=== PATIENT | male | born 1950 | race Asian ===

== ENCOUNTER 2017-10-16 09:08 | Day surgery (SDC) | payer MEDICAID ==
[~2017-10-16] VITALS: Ht 175.3 cm; Wt 68.5 kg
[2017-10-16 10:10] LABS: Hemoglobin 14.4 g/dL (13.5-17.5); Mean Corpuscular Hemoglobin 32.2 pg (28.0-32.0); Mean Corpuscular Hgb Conc. 33.5 g/dL (32.0-36.0); Mean Corpuscular Volume 96.1 fL (80.0-100.0); Platelet Count (auto) 207 10^3/uL (140-450); Red Blood Cells 4.48 10^6/uL (4.5-5.90); Red Cell Distribution Width 13.2 % (11.8-14.3); White Blood Cell 6.2 10^3/uL (4.4-10.8)
[2017-10-16 10:12] LABS: Band Neutrophils % (manual) 0
[2017-10-16 10:13] LABS: Basophils % (manual) 0 (0.0-2.0); Blast Cells 0; Metamyelocytes % 0; Myelocytes % 0; Promyelocytes % 0; Reactive Lymphocytes 0
[2017-10-16 10:27] LABS: INR 0.92 (0.9-1.15); Partial Thromboplastin Time 25.1 sec (22.64-33.71)
[2017-10-16 10:40] LABS: Alanine Aminotransferase 56 U/L (16-61); Albumin 4.2 g/dL (3.4-5.0); Alkaline Phosphatase 54 U/L (45-117); Anion Gap 8 (5-15); Aspartate Aminotransferase 24 U/L (15-37); BUN/Creatinine Ratio 12.6; Bilirubin, Total 0.5 mg/dL (0.2-1.0); Blood Urea Nitrogen 15 mg/dL (7-18); Calcium 8.8 mg/dL (8.5-10.1); Carbon Dioxide 30 mmol/L (21-32); Chloride 104 mmol/L (98-107); GFR African American 78 mL/min; GFR Non-African American 65 mL/min; Glucose 123 mg/dL (74-106); Sodium 142 mmol/L (136-145)
[2017-10-16 11:14] LABS: Eosinophils % (manual) 15 (0-7); Lymphocytes % (manual) 26 (10.0-50.0); Monocytes % (manual) 7 (0-12)
[2017-10-16 13:15] VITALS: BP 108/68
[2017-10-16] MEDS ORDERED: IODIXANOL 320MG/ML 100ML BTL IV ONE (14:19)
[2017-10-16] MEDS ORDERED: LIDOCAINE 2%HCL (LOCAL ANESTH.) INJ 20ML MDV ONE (14:20)
[2017-10-16] MEDS ORDERED: ANGIOMAX 250 MG VIAL IV ONE (14:45)
[2017-10-16] MEDS ORDERED: MIDAZOLAM HCL 1MG/1ML-2 ML VIAL ONE (14:46)
[2017-10-16] MEDS ORDERED: fentaNYL CITRATE 100 MCG/2 ML VL ONE (14:46)
== END 2017-10-16 17:20 | disposition home or self-care (01) ==
LOC: ER 09:08 → CATH 09:09 → ER 15:33 → CATH 17:20
PROVIDERS: ATTEND Internal Medicine
DX: I20.0 Unstable angina (principal); I99.8 Other disorder of circulatory system; E11.9 Type 2 diabetes mellitus without complications; I10 Essential (primary) hypertension
CPT/HCPCS: 93454; C1760; C1894; J1644; J3010; J7030; 36415; 71020; 80053; 84484; 85007; 85027; 85610; 85730; 86850; 86900; 86901; 93005; 94761; 99152; J2250; Q9967

== ENCOUNTER 2025-09-25 18:22 | Inpatient (IN) | payer MEDICARE, MEDICAID ==
[~2025-09-25] VITALS: Ht 175.3 cm; Wt 62.0 kg
--- NOTE | 2025-09-25 19:10 | ED.PDOC ---
Musculoskeletal HPI Comments 75-year-old male came to ER for left lower extremity swelling. Patient underwent prostatectomy secondary to prostate cancer as September 15, 2025 at [facility], tolerated procedure well. Yesterday noted swelling of the left lower quadrant of his abdomen, and earlier today noted swelling over his left lower extremity. No fever noted Chief Complaint: Lower Extremity Time Seen by MD: 19:09 Primary Care Provider: JAYME Reviewed Notes: Nurses Notes Allergies: Coded Allergies: NO KNOWN ALLERGIES (Unverified , 10/16/17) Home Meds No Active Prescriptions or Reported Meds Information Source: Patient, Relative Mode of Arrival: Ambulatory Extremity Location: Leg Past Medical History PAST MEDICAL HISTORY: Cancer, DM, High Lipids Surgical History (Other): S/p prostatectomy last September 15 at [facility] Family History Family History: No family hx of DM Social History Smoker: Non-Smoker Alcohol: Denies ETOH Use Drugs: Denies Drug Use Lives In: Home Constitutional: denies: chills, diaphoresis, fatigue, fever, malaise, sweats, weakness, others EENTM: denies: blurred vision, double vision, ear bleeding, ear discharge, ear drainage, ear pain, ear ringing, eye pain, eye redness, hearing loss, mouth pain, mouth swelling, nasal discharge, nose bleeding, nose congestion, nose pain, photophobia, tearing, throat pain, throat swelling, voice changes, others Respiratory: denies: cough, hemoptysis, orthopnea, SOB at rest, shortness of breath, SOB with excertion, stridor, wheezing, others Cardiovascular: denies: chest pain, dizzy spells, diaphoresis, Dyspnea on exertion, edema, irregular heart beat, left arm pain, lightheadedness, palpitations, PND, syncope, others Gastrointestinal: reports: abdominal pain (LLQ); denies: abdomen distended, blood streaked bowels, constipated, diarrhea, dysphagia, difficulty swallowing, hematemesis, melena, nausea, poor appetite, poor fluid intake, rectal bleeding, rectal pain, vomiting, others Genitourinary: denies: burning, dysuria, flank pain, frequency, hematuria, incontinence, penile discharge, penile sore, pain, testicle pain, testicle swelling, urgency, others Musculoskeletal: reports: others (Lower extremity swelling); denies: back pain, gout, joint pain, joint swelling, muscle pain, muscle stiffness, neck pain Integumetry: denies: bruises, change in color, change in hair/nails, dryness, laceration, lesions, lumps, rash, wounds, others Allergic/Immunocompromised: denies: Difficulty Healing, Frequent Infections, Hives, Itching, others Hematologic/Lymphatic: denies: anemia, blood clots, easy bleeding, easy bruising, swollen glands, others Endocrine: denies: excessive hunger, excessive sweating, excessive thirst, excessive urination, flushing, intolerance to cold, intolerance to heat, unexplained weight gain, unexplained weight loss, others Psychiatric: denies: anxiety, bipolar disorder, depression, hopeless, panic disorder, schizophrenia, sleepless, suicidal, others Physical Exam General Appearance: No Apparent Distress, Normal HEENT: Normal ENT Inspection, Pharynx Normal, TMs Normal Neck: Full Range of Motion, Non-Tender, Normal, Normal Inspection Respiratory: Chest Non-Tender, Lungs Clear, No Accessory Muscle Use, No Respiratory Distress, Normal Breath Sounds Cardiovascular: No Edema, No JVD, No Murmur, No Gallop, Normal Peripheral Pulses, Regular Rate/Rhythm Breast Exam: Deferred Gastrointestinal: No Organomegaly, Non Tender, No Pulsatile Mass, Normal Bowel Sounds, Soft, Other (Hard mass at left lower quadrant, no hematoma or bruising noted) Genitalia: Deferred Pelvic: Deferred Rectal: Deferred Extremities: No calf tenderness, Normal capillary refill, Normal range of motion, Non-tender, Pedal edema (+2 pedal edema left leg), Swelling Musculoskeletal : Apperance: Normal Neurologic: Alert, whipped topping finisher II-XII nml as Tested, No Motor Deficits, Normal Affect, Normal Mood, No Sensory Deficits Cerebellar Function: Normal Reflexes: Normal Skin: Dry, Normal Color, Warm Lymphatic: No Adenopathy Was a procedure done? Was a procedure done?: No Differential Diagnosis EXT Differential Diagnosis: Cellulitis, CHF, Deep Vein Thrombosis X-Ray, Labs, Meds, VS Vital Signs Date Time Temp Pulse Resp B/P (MAP) Pulse Ox O2 Delivery O2 Flow Rate FiO2 09/25/25 18:23 98.1 77 18 129/78 95 98.1 Lab Test 09/25/25 19:43 Range/Units White Blood Count 6.8 4.4-10.8 10^3/uL Red Blood Count 4.10 L 4.5-5.90 10^6/uL Hemoglobin 12.8 L 13.5-17.5 g/dL Hematocrit 38.0 L 41.0-53.0 % Mean Corpuscular Volume 92.6 80.0-100.0 fL Mean Corpuscular Hemoglobin 31.1 28.0-32.0 pg Mean Corpuscular Hemoglobin Concent 33.5 32.0-36.0 g/dL Red Cell Distribution Width 13.6 11.8-14.3 % Platelet Count 261 140-450 10^3/uL Mean Platelet Volume 7.5 6.9-10.8 fL Neutrophils (%) (Auto) 37.0-80.0 % Lymphocytes (%) (Auto) 10.0-50.0 % Monocytes (%) (Auto) 0.0-12.0 % Eosinophils (%) (Auto) 0.0-7.0 % Basophils (%) (Auto) 0.0-2.0 % Neutrophils # (Auto) 1.6-8.6 10 ^3/uL Lymphocytes # (Auto) 0.4-5.4 10 ^3/uL Monocytes # (Auto) 0-1.3 10 ^3/uL Differential Total Cells Counted 100.0 100 Neutrophils % (Manual) 53 37.0-80.0 Band Neutrophils % (Manual) 1 Lymphocytes % (Manual) 21 10.0-50.0 Monocytes % (Manual) 4 0-12 Eosinophils % (Manual) 21 H 0-7 Basophils % (Manual) 0 0.0-2.0 Metamyelocytes % (manual) 0 Myelocytes % (Manual) 0 Promyelocytes % (Manual) 0 Blast Cells % (Manual) 0 Reactive Lymphocytes 0 Platelet Estimate Adequate Large Platelets Few Ovalocytes Few Schistocytes Few Sodium Level 143 136-145 mmol/L Potassium Level 4.0 3.5-5.1 mmol/L Chloride Level 101 98-107 mmol/L Carbon Dioxide Level 32 H 20-31 mmol/L Anion Gap 10 5-15 Blood Urea Nitrogen 17 9-23 mg/dL Creatinine 1.17 0.700-1.30 mg/dL Glomerular Filtration Rate Calc 65 >90 mL/min BUN/Creatinine Ratio 14.5 10.0-20.0 Serum Glucose 118 H 74-106 mg/dL Calcium Level 10.1 8.7-10.4 mg/dL Left lower extremity venous duplex Clinical History: dvt, pain Comparison: None Technique: Duplex Doppler evaluation of the deep venous system of the left lower extremity from the common femoral vein to the popliteal vein including color Doppler and spectral/pulsed waveform analysis was performed. Findings: The common femoral vein demonstrates appropriate compressibility and waveform variability. There is compressibility/patency of the great saphenous vein at the proximal thigh. The femoral vein demonstrates appropriate compressibility and waveform variability. The deep femoral vein demonstrates appropriate compressibility and waveform variability. The popliteal vein demonstrates appropriate compressibility and waveform variability. There is normal compressibility at the tibioperoneal trunk. Diffuse subcutaneous edema. Impression: No left femoropopliteal venous thrombosis. Diffuse subcutaneous edema EDURE(s): ABPL - CT AB PEL WO CON-NO ORAL OR IV REASON: post op pain ORDER NUMBER(s): [id number], ACCESSION NUMBER(s): [id number] CLINICAL HISTORY: post op pain TECHNIQUE: CT of the abdomen and pelvis was performed without intravenous contrast This exam was performed according to our departmental dose optimization program. Up-to-date CT equipment and radiation dose reduction techniques are utilized as appropriate. WID: COMPARISON: None FINDINGS: Lung bases: Bronchial wall thickening with mild emphysema. Liver: Unremarkable. Gallbladder and bile ducts: Unremarkable. Spleen: Unremarkable. Pancreas: Unremarkable. Adrenals: Unremarkable. Kidneys and ureters: Unremarkable. Bowel: Moderate colonic stool burden. The small bowel and stomach are unremarkable. Bladder: Banks catheter within urinary bladder with associated gas.. Reproductive organs: Unremarkable. Lymph nodes: Unremarkable. Vessels: Mild atherosclerotic calcifications. Abdominal aorta is normal in caliber Abdominal wall: Subcutaneous emphysema along the ventral abdominal wall.. Bones: Mild -moderate degenerative changes within the lumbar spine.. Other: Unremarkable. IMPRESSION: Subcutaneous emphysema within the anterior abdominal wall and inguinal soft tissues which may be related to recently provided history of postoperative status. Banks catheter with air within the bladder Moderate -large colonic stool burden Emphysema Time of 1ST Reevaluation: 19:06 Reevaluation 1ST: Unchanged Patient Education/Counseling: Diagnosis, Treatment, Prognosis, Need For Follow Up Family Education/Counseling: Diagnosis, Treatment, Prognosis, Need For Follow Up, No Family Present Comments pt has a dvt of the left lower extremety and will be admitted.The he is postoperative and in August the surgery. Presents we when he leg swelling. Ultrasound shows and he is hearing he will. Her morning GERD requiring the not show hematoma or abscess. Departure 1 Departure Time of Disposition: 21:32 Impression: Primary Impression: DVT (deep venous thrombosis) Qualified Codes: I82.412 - Acute embolism and thrombosis of left femoral vein Disposition: ADMITTED INPATIENT Condition: Stable e-Prescriptions No Active Prescriptions or Reported Meds Discharged With: Self, Relative Critical Care Note Critical Care Time?: No Stability Stability form required: No Heart Score Heart Score: Heart Score Response (Comments) Value History N/A 0 EKG N/A 0 Age N/A 0 Risk Factors N/A 0 Troponin N/A 0 Total 0 I personally scribed for KASHMIR BASSETT MD ([email or web address]) on 09/25/25 at 19:10. Electronically submitted by Steve Barone ([email or web address]). I personally scribed for KASHMIR BASSETT MD ([email or web address]) on 09/25/25 at 21:24. Electronically submitted by Steve Barone ([email or web address]). KASHMIR BASSETT MD Sep 25, 2025 19:10
--- NOTE | 2025-09-25 19:42 | DVH ---
Left lower extremity venous duplex Clinical History: dvt, pain Comparison: None Technique: Duplex Doppler evaluation of the deep venous system of the left lower extremity from the common femoral vein to the popliteal vein including color Doppler and spectral/pulsed waveform analysis was performed. Findings: The common femoral vein demonstrates appropriate compressibility and waveform variability. There is compressibility/patency of the great saphenous vein at the proximal thigh. The femoral vein demonstrates appropriate compressibility and waveform variability. The deep femoral vein demonstrates appropriate compressibility and waveform variability. The popliteal vein demonstrates appropriate compressibility and waveform variability. There is normal compressibility at the tibioperoneal trunk. Diffuse subcutaneous edema. Impression: No left femoropopliteal venous thrombosis. Diffuse subcutaneous edema
[2025-09-25 20:03] LABS: Hematocrit 38.0 % (41.0-53.0); Hemoglobin 12.8 g/dL (13.5-17.5); Mean Corpuscular Hemoglobin 31.1 pg (28.0-32.0); Mean Corpuscular Volume 92.6 fL (80.0-100.0)
[2025-09-25 20:08] LABS: Chloride 101 mmol/L (98-107); Potassium 4.0 mmol/L (3.5-5.1)
[2025-09-25 20:09] LABS: Sodium 143 mmol/L (136-145)
[2025-09-25 20:10] LABS: Anion Gap 10 (5-15); Calcium 10.1 mg/dL (8.7-10.4)
[2025-09-25 20:15] LABS: BUN/Creatinine Ratio 14.5 (10.0-20.0); Blood Urea Nitrogen 17 mg/dL (9-23)
[2025-09-25 20:16] LABS: Carbon Dioxide 32 mmol/L (20-31); Glucose 118 mg/dL (74-106)
--- NOTE | 2025-09-25 20:23 | DVH ---
CLINICAL HISTORY: post op pain TECHNIQUE: CT of the abdomen and pelvis was performed without intravenous contrast This exam was performed according to our departmental dose optimization program. Up-to-date CT equipment and radiation dose reduction techniques are utilized as appropriate. WID: COMPARISON: None FINDINGS: Lung bases: Bronchial wall thickening with mild emphysema. Liver: Unremarkable. Gallbladder and bile ducts: Unremarkable. Spleen: Unremarkable. Pancreas: Unremarkable. Adrenals: Unremarkable. Kidneys and ureters: Unremarkable. Bowel: Moderate colonic stool burden. The small bowel and stomach are unremarkable. Bladder: Banks catheter within urinary bladder with associated gas.. Reproductive organs: Unremarkable. Lymph nodes: Unremarkable. Vessels: Mild atherosclerotic calcifications. Abdominal aorta is normal in caliber Abdominal wall: Subcutaneous emphysema along the ventral abdominal wall.. Bones: Mild -moderate degenerative changes within the lumbar spine.. Other: Unremarkable. IMPRESSION: Subcutaneous emphysema within the anterior abdominal wall and inguinal soft tissues which may be related to recently provided history of postoperative status. Banks catheter with air within the bladder Moderate -large colonic stool burden Emphysema
[2025-09-25 20:52] LABS: Total Cells Counted 100.0 (100)
[2025-09-25 20:53] LABS: Ovalocytes FEW
[2025-09-25] MEDS ORDERED: ENOXAPARIN SOD 60 MG/0.6 ML SYRINGE SC ONE (21:30)
[2025-09-25] MEDS ORDERED: ACETAMINOPHEN 325 MG TAB PO PRN (23:15)
--- NOTE | 2025-09-25 23:26 | DVHHPRES ---
History of Present Illness Resident Creating Document: RHETT LEDEZMA RESIDENT History of Present Illness Edson Moore, a 75-year-old male postoperative day 12, status post prostate cancer surgery with past medical history of BPH status post open prostatic surgery, type 2 diabetes mellitus, hypercholesterolemia, bladder cancer multiple surgeries in 2019 to 2021, macular degeneration on treatment, Banks's catheter in place presented to the ER with the complaints of left-sided leg swelling since this morning. He also has left-sided inguinal swelling, size does not change with coughing. He reports having mild pain in the inguinal swelling site. He denies any chest pain, shortness of breath, fever, urinary symptoms like urgency frequency or burning sensation in micturition, sick contacts or recent travel. Past medical history: As above Past surgical history: as above plus hemorrhoidectomy remotely Allergies: None Smoking: Quit 10 years ago. Before migrating to the [facility] from [facility], he used to be a moderate smoker. Code status: Full code Review of Systems Allergies: Coded Allergies: NO KNOWN ALLERGIES (Unverified , 10/16/17) Medications Current Medications Medications Dose Ordered Sig/Ky Route Start Time Stop Time Status Last Admin Dose Admin Enoxaparin Sodium 40 mg DAILY SC 09/26/25 10:00 UNV Acetaminophen 650 mg Q6HP PRN PO 09/25/25 23:15 UNV Exam Vital Signs Vital Signs Date Time Temp Pulse Resp B/P (MAP) Pulse Ox O2 Delivery O2 Flow Rate FiO2 09/25/25 18:23 98.1 77 18 129/78 95 98.1 Exam Pt is lying on bed General Appearance: Alert, Oriented X3, Cooperative, Mild distress HEENT: Atraumatic, Mucous membranes moist/pink Respiratory: Clear to auscultation, Normal air movement, No added sounds Cardiovascular: Regular rate, Normal S1, Normal S2, No murmurs Abdominal/ : Active bowel sounds, Soft, no distention, no tenderness, left inguinal swelling Extremities: No edema, Normal pulses, left leg swelling, Skin: No Significant rash, except past surgical scars Neuro: Normal speech, sensorimotor deficits none Psych/Mental Status: Mental status NL, Mood NL Nurse was there as reverse engineer during examination Labs/Xrays Labs Test 09/25/25 19:43 Range/Units White Blood Count 6.8 4.4-10.8 10^3/uL Red Blood Count 4.10 L 4.5-5.90 10^6/uL Hemoglobin 12.8 L 13.5-17.5 g/dL Hematocrit 38.0 L 41.0-53.0 % Mean Corpuscular Volume 92.6 80.0-100.0 fL Mean Corpuscular Hemoglobin 31.1 28.0-32.0 pg Mean Corpuscular Hemoglobin Concent 33.5 32.0-36.0 g/dL Red Cell Distribution Width 13.6 11.8-14.3 % Platelet Count 261 140-450 10^3/uL Mean Platelet Volume 7.5 6.9-10.8 fL Neutrophils (%) (Auto) 37.0-80.0 % Lymphocytes (%) (Auto) 10.0-50.0 % Monocytes (%) (Auto) 0.0-12.0 % Eosinophils (%) (Auto) 0.0-7.0 % Basophils (%) (Auto) 0.0-2.0 % Neutrophils # (Auto) 1.6-8.6 10 ^3/uL Lymphocytes # (Auto) 0.4-5.4 10 ^3/uL Monocytes # (Auto) 0-1.3 10 ^3/uL Differential Total Cells Counted 100.0 100 Neutrophils % (Manual) 53 37.0-80.0 Band Neutrophils % (Manual) 1 Lymphocytes % (Manual) 21 10.0-50.0 Monocytes % (Manual) 4 0-12 Eosinophils % (Manual) 21 H 0-7 Basophils % (Manual) 0 0.0-2.0 Metamyelocytes % (manual) 0 Myelocytes % (Manual) 0 Promyelocytes % (Manual) 0 Blast Cells % (Manual) 0 Reactive Lymphocytes 0 Platelet Estimate Adequate Large Platelets Few Ovalocytes Few Schistocytes Few Sodium Level 143 136-145 mmol/L Potassium Level 4.0 3.5-5.1 mmol/L Chloride Level 101 98-107 mmol/L Carbon Dioxide Level 32 H 20-31 mmol/L Anion Gap 10 5-15 Blood Urea Nitrogen 17 9-23 mg/dL Creatinine 1.17 0.700-1.30 mg/dL Glomerular Filtration Rate Calc 65 >90 mL/min BUN/Creatinine Ratio 14.5 10.0-20.0 Serum Glucose 118 H 74-106 mg/dL Calcium Level 10.1 8.7-10.4 mg/dL SEPSIS Sepsis Screen Date sepsis recognized/suspect: Sep 25, 2025 Time Sepsis recognized/suspect: 1824 Recent Procedure: No On Antibiotic Therapy: No Respiratory Rate >20: No Heart Rate >90: No Temp<36 C (96.8 F) or >38.3 C: No SBP <90 or MAP <65 mmHG: No New Acute Mental Status Change: No Is the patient on CPAP, BIPAP,: No Physician Orders Lt Lower Dvt (09/25/25 19:10) Ct Ab Pel Wo Con-No Oral Or Iv (09/25/25 19:10) Admit (09/25/25 23:10) Allergies (09/25/25 23:10) Code Status (09/25/25 23:10) Oxygen Per Hour (09/25/25 23:10) Enoxaparin Sodium (Lovenox) (09/26/25 10:00) Complete Blood Count (09/26/25 04:00) Comprehensive Metabolic Panel (09/26/25 04:00) Cardiac Diet-2gna,Lofat,Lochol (09/26/25 Breakfast) Acetaminophen Tablet (Tylenol Tablet) (09/25/25 23:15) Notify Of Changes From Base (09/25/25 23:10) Electrocardigram (09/25/25 23:10) Mri Abd Pelvis W/O Cont (09/25/25 23:22) Vital Signs Date Time Temp Pulse Resp B/P (MAP) Pulse Ox O2 Delivery O2 Flow Rate FiO2 09/25/25 18:23 98.1 77 18 129/78 95 98.1 Laboratory Tests Test 09/25/25 19:43 White Blood Count 6.8 10^3/uL (4.4-10.8) Assessment/Plan Assessment/Plan Left leg swelling possible DVT (modified wells score high risk 6) Inguinal swelling Postoperative day 12 status post prostate cancer surgery Banks's catheter in place Abdomen pelvis CT: Subcutaneous emphysema within the anterior abdominal wall and inguinal soft tissues, which may be postoperative Extremity venous study: No left femoropopliteal venous thrombosis. Abdomen pelvis MRI ordered, pending results due to high risk of DVT. Constipation Abdomen pelvis CT: Moderate -large colonic stool burden Lactulose ordered Normocytic normochromic anemia -iron panel, LDH, reticulocyte ordered -stool FOBT ordered -reticulocyte count ordered GI prophylaxis: Pantoprazole DVT prophylaxis: Lovenox Diet: Cardiac Goals of care discussed with the patient for more than 27 minutes: Full code status Case discussed with , patient and RN Plan discussed with: Patient, Other (RN) My Orders Orders - RHETT LEDEZMA RESIDENT Procedure Category Date Status Time Admit ADMIT 09/25/25 Transmitted 23:10 Allergies DRAKE 09/25/25 In Process 23:10 Code Status CODE 09/25/25 Transmitted 23:10 Oxygen Per Hour RT 09/25/25 Transmitted 23:10 Enoxaparin Sodium PHA 09/26/25 Logged (Lovenox) 10:00 Complete Blood Count LAB 09/26/25 Verified 04:00 Comprehensive LAB 09/26/25 Verified Metabolic Panel 04:00 Cardiac DIET 09/26/25 Transmitted Diet-2gna,Lofat,Lochol Breakfast Acetaminophen Tablet PHA 09/25/25 Logged (Tylenol Tablet) 23:15 Notify Md Of Changes DRAKE 09/25/25 In Process From Base 23:10 Electrocardigram EKG 09/25/25 Logged 23:10 Mri Abd Pelvis W/O MRI 09/25/25 Logged Cont 23:22 Visit Coding STANDARD RES Billing Provider: RAFFAELE DHILLON MD Date of Service if different f: Sep 26, 2025 Common Visit Codes: 58074-[id number] INP/OBS CARE (HIGH) Secondary Visit Codes: 03040-[id number] CARE PLAN 30 MINUTES RHETT LEDEZMA Sep 25, 2025 23:26
[2025-09-26 03:17] LABS: Hematocrit 39.0 % (41.0-53.0); Hemoglobin 13.1 g/dL (13.5-17.5); Mean Corpuscular Hemoglobin 31.2 pg (28.0-32.0); Mean Corpuscular Volume 92.7 fL (80.0-100.0)
[2025-09-26 03:35] LABS: Alanine Aminotransferase 22 U/L (7-40); Albumin 4.5 g/dL (3.2-4.8); Alkaline Phosphatase 69 U/L (46-116); Anion Gap 9 (5-15); BUN/Creatinine Ratio 15.7 (10.0-20.0); Blood Urea Nitrogen 16 mg/dL (9-23); Calcium 9.8 mg/dL (8.7-10.4); Carbon Dioxide 30 mmol/L (20-31); Chloride 102 mmol/L (98-107); Glucose 96 mg/dL (74-106); Potassium 4.2 mmol/L (3.5-5.1); Sodium 141 mmol/L (136-145); Total Protein 7.5 g/dL (5.7-8.2)
[2025-09-26 03:36] LABS: Bilirubin, Total 0.5 mg/dL (0.2-1.0)
[2025-09-26 05:10] LABS: Total Cells Counted 100.0 (100)
[2025-09-26] MEDS ORDERED: ROSU10TA64 PO (05:33)
[2025-09-26 06:16] LABS: Iron 51.0 ug/dL (65-175)
[2025-09-26 06:19] LABS: Total Iron Binding Capacity 272.0 ug/dL (250-425)
[2025-09-26] MEDS: PANTOPRAZOLE 40 MG TAB PO SCH (06:42)
[2025-09-26] MEDS: LACTULOSE 20Gm/30ML SOLN PO ONE (06:43)
[2025-09-26 07:14] LABS: Urine Protein, UAD Negative (Negative)
[2025-09-26] MEDS ORDERED: NALOXONE HCL 0.4 MG/ML VIAL IM ONE (10:30)
--- NOTE | 2025-09-26 10:37 | DVH ---
CHEST RADIOGRAPH Indication: r/o any metallic prosthesis for MRI Technique: Single frontal view of the chest was obtained Comparison: None FINDINGS: Lines and Tubes: None Lungs: Scarring or areas of atelectasis right upper lobe right lower lobe lower lobe. Pleura: No effusion. No pneumothorax. Cardiomediastinal contours: Unremarkable Bones: No acute osseous abnormality. IMPRESSION: 1. No prior studies for comparison 2. Scarring or linear atelectasis right upper lobe right lower lobe and left lower lobe.
[2025-09-26] MEDS: LACTULOSE 20Gm/30ML SOLN PO SCH (10:39)
[2025-09-26] MEDS: ENOXAPARIN SOD 40 MG/0.4 ML SYRINGE SC SCH (10:39)
[2025-09-26 11:29] VITALS: BP 137/82; PULSE 79; RESP 17; TEMP 98.7; O2SAT 96
[2025-09-26] MEDS ORDERED: LATA0.008 EACHEYE (11:52)
[2025-09-26] MEDS ORDERED: METF-370 PO (11:52)
[2025-09-26] MEDS ORDERED: ROSU10TA16 PO (11:52)
[2025-09-26] MEDS ORDERED: ASPI1TAB20 PO (11:52)
--- NOTE | 2025-09-26 11:59 | DVH ---
[id number] MRI MRI ABD PELVIS W/O CONT Attending Name: RHETT LEDEZMA RESIDENT COMPARISON: CT abdomen and pelvis done 09/25/2025 INDICATION: Abdominal pain TECHNIQUE: MR abdomen and MRCP was performed without the use of intravenous contrast using a MRI imaging system. Three-dimensional MRCP was performed using maximum intensity projection reconstruction on an independent workstation under concurrent supervision. FINDINGS: Visualized lower thorax: Limited imaging of the thorax demonstrates no suspicious pleural or parenchymal disease. Liver: Normal in morphology and signal intensity. Tiny scattered hepatic cysts are present. Gallbladder: No evidence of cholelithiasis or gallbladder wall thickening. Biliary system: There is no intrahepatic or extrahepatic bile duct dilatation. No filling defect to suggest choledocholithiasis. Spleen: Normal in morphology and signal intensity. Pancreas: Normal in morphology and signal intensity. Adrenal glands: Normal in morphology and signal intensity. Kidneys: The kidneys are symmetric in size and appearance. No hydronephrosis. Tiny scattered renal cysts. Urinary tract: The included ureters, as visualized, are normal in course and caliber. GI tract: The included portions of the bowel are within normal limits. Lymph nodes: No enlarged lymph nodes. Peritoneum: No ascites. Musculoskeletal: The bone marrow signal intensity is within normal limits. IMPRESSION: 1. There are tiny scattered hepatic and renal cysts. 2. No gallstones. No signs of cholecystitis or biliary disease.
[2025-09-26 12:43] VITALS: BP 137/82; PULSE 79; RESP 17; TEMP 98; O2SAT 96
--- NOTE | 2025-09-26 12:58 | DVHPN2 ---
Changes from previous H/P or p: No Changes Objective Vitals Vital Signs Date Time Temp Pulse Resp B/P (MAP) Pulse Ox O2 Delivery O2 Flow Rate FiO2 09/26/25 12:43 98.0 79 17 137/82 (100) 96 98.0 09/26/25 11:29 Room Air* 0 21 Medications Current Medications Medications Dose Ordered Sig/Ky Route Start Time Stop Time Status Last Admin Dose Admin Enoxaparin Sodium 40 mg DAILY SC 09/26/25 10:00 09/26/25 10:39 40 MG Acetaminophen 650 mg Q6HP PRN PO 09/25/25 23:15 Lactulose 15 ml DAILY PO 09/26/25 10:00 09/26/25 10:39 15 ML Pantoprazole Sodium 40 mg DAILY@0600 PO 09/26/25 06:00 09/26/25 06:42 40 MG Laboratory Results Laboratory Tests 09/26/25 02:57 Chemistry Test 09/25/25 19:43 09/26/25 02:57 Calcium Level 10.1 mg/dL (8.7-10.4) 9.8 mg/dL (8.7-10.4) Albumin 4.5 g/dL (3.2-4.8) Total Protein 7.5 g/dL (5.7-8.2) LFT Test 09/26/25 02:57 Alanine Aminotransferase (ALT) 22 U/L (7-40) Alkaline Phosphatase 69 U/L (46-116) Aspartate Amino Transferase (AST) 24 U/L (13-40) Total Bilirubin 0.5 mg/dL (0.2-1.0) Urinalysis Test 09/26/25 07:00 Urine Color Colorless (Yellow) Urine Clarity Clear (Clear) Urine pH 6.5 (5.0-9.0) Urine Specific [place] 1.005 (1.001-1.035) Urine Protein Negative (Negative) Urine Ketones Negative (Negative) Urine Blood Trace /uL (Negative) H Urine Nitrite Negative (Negative) Urine Bilirubin Negative (Negative) Urine Urobilinogen Normal mg/dL (Negative) Urine Leukocyte Esterase 1+ /uL (Negative) Urine RBC 1 /hpf (0 - 3) Urine Microscopic WBC 5 /HPF (0-3) H Urine Squamous Epithelial Cells None seen /hpf (<5) Urine Bacteria None seen /hpf (None Seen) Urine Glucose Normal mg/dL (Normal) Labs and/or images reviewed: Labs reviewed by me, Image(s) reviewed by me Assessment/Plan Assessment/Plan Left lower extremity swelling postop day 12. DVT ruled out: Lovenox 40 mg subQ daily History of Surgery for prostate cancer 12 days ago BPH History of bladder cancer with multiple surgeries Diabetes: insulin sliding scale Hypercholesterolemia Moderate Malnutrition Time spent 45 minutes Advanced care planning time 20 minutes Patient is full code Plan discussed with: Patient Date of Service: Sep 26, 2025 Billing Provider: BRYAN STEEN MD Common Visit Codes: 86963-[id number] INP/OBS CARE(HIGH) BRYAN STEEN MD Sep 26, 2025 12:58
[2025-09-26 16:49] VITALS: BP 121/74; PULSE 73; RESP 17; TEMP 97.5; O2SAT 99
[2025-09-26 20:00] VITALS: PULSE 74; RESP 19
[2025-09-26 21:00] VITALS: BP 122/70; PULSE 74; RESP 19; TEMP 98.1; O2SAT 97
[2025-09-27 01:00] VITALS: BP 102/53; PULSE 56; RESP 17; TEMP 97.3; O2SAT 90
[2025-09-27 05:00] VITALS: BP 130/81; PULSE 77; RESP 17; TEMP 97.4; O2SAT 97
[2025-09-27 08:00] VITALS: PULSE 77; RESP 17
[2025-09-27 08:46] VITALS: BP 122/74; PULSE 75; RESP 18; TEMP 97.9; O2SAT 98
--- NOTE | 2025-09-27 12:06 | DVHPN2 ---
Changes from previous H/P or p: No Changes Objective Vitals Vital Signs Date Time Temp Pulse Resp B/P (MAP) Pulse Ox O2 Delivery O2 Flow Rate FiO2 09/27/25 08:46 97.9 75 18 122/74 (90) 98 97.9 09/27/25 08:00 Room Air* 0 21 Intake/Output Intake and Output 09/27/25 07:00 Intake Total 1080 ml Balance 1080 ml Intake Oral 1080 ml # Voids 2 Medications Current Medications Medications Dose Ordered Sig/Ky Route Start Time Stop Time Status Last Admin Dose Admin Enoxaparin Sodium 40 mg DAILY SC 09/26/25 10:00 09/27/25 10:55 40 MG Acetaminophen 650 mg Q6HP PRN PO 09/25/25 23:15 Lactulose 15 ml DAILY PO 09/26/25 10:00 09/27/25 10:49 15 ML Pantoprazole Sodium 40 mg DAILY@0600 PO 09/26/25 06:00 09/27/25 06:50 40 MG Metformin HCl 500 mg BIDWM PO 09/27/25 18:00 Laboratory Results Laboratory Tests 09/26/25 02:57 Urinalysis Test 09/26/25 07:00 Urine Color Colorless (Yellow) Urine Clarity Clear (Clear) Urine pH 6.5 (5.0-9.0) Urine Specific [place] 1.005 (1.001-1.035) Urine Protein Negative (Negative) Urine Ketones Negative (Negative) Urine Blood Trace /uL (Negative) H Urine Nitrite Negative (Negative) Urine Bilirubin Negative (Negative) Urine Urobilinogen Normal mg/dL (Negative) Urine Leukocyte Esterase 1+ /uL (Negative) Urine RBC 1 /hpf (0 - 3) Urine Microscopic WBC 5 /HPF (0-3) H Urine Squamous Epithelial Cells None seen /hpf (<5) Urine Bacteria None seen /hpf (None Seen) Urine Glucose Normal mg/dL (Normal) Labs and/or images reviewed: Labs reviewed by me, Image(s) reviewed by me Assessment/Plan Assessment/Plan Left lower extremity swelling postop day 12. DVT ruled out: Lovenox 40 mg subQ daily History of Surgery for prostate cancer 12 days ago at [facility] BPH History of bladder cancer with multiple surgeries Diabetes: insulin sliding scale Hypercholesterolemia Moderate Malnutrition Time spent 45 minutes Advanced care planning time 20 minutes Patient is full code Daughter Dr Shameka Moore () [phone] bedside and requesting patient to be discharged home LION Tony at bedside Plan discussed with: Patient My Orders Orders - BRYAN STEEN MD Procedure Category Date Status Time [facility] 09/27/25 In Process Hydrochloride 18:00 Date of Service: Sep 27, 2025 Billing Provider: BRYAN STEEN MD Common Visit Codes: [id number] INP/OBS CARE(HIGH) BRYAN STEEN MD Sep 27, 2025 12:05
--- NOTE | 2025-09-27 12:09 | DVHDS2 ---
Discharge Summary Date of Admission Sep 25, 2025 at 23:10 Date of Discharge: Sep 27, 2025 Admitting Diagnosis Left lower extremity swelling Wounds: None Labs/Diagnostic Data: Laboratory Results Test 09/26/25 18:15 09/26/25 07:00 09/26/25 02:57 09/26/25 02:37 POC Glucose 94 mg/dl (70-106) Urine Color Colorless (Yellow) Urine Clarity Clear (Clear) Urine pH 6.5 (5.0-9.0) Urine Specific [place] 1.005 (1.001-1.035) Urine Protein Negative (Negative) Urine Ketones Negative (Negative) Urine Blood Trace /uL (Negative) Urine Nitrite Negative (Negative) Urine Bilirubin Negative (Negative) Urine Urobilinogen Normal mg/dL (Negative) Urine Leukocyte Esterase 1+ /uL (Negative) Urine RBC 1 /hpf (0 - 3) Urine Microscopic WBC 5 /HPF (0-3) Urine Squamous Epithelial Cells None seen /hpf (<5) Urine Bacteria None seen /hpf (None Seen) Urine Glucose Normal mg/dL (Normal) White Blood Count 7.2 10^3/uL (4.4-10.8) Red Blood Count 4.21 10^6/uL (4.5-5.90) Hemoglobin 13.1 g/dL (13.5-17.5) Hematocrit 39.0 % (41.0-53.0) Mean Corpuscular Volume 92.7 fL (80.0-100.0) Mean Corpuscular Hemoglobin 31.2 pg (28.0-32.0) Mean Corpuscular Hemoglobin Concent 33.6 g/dL (32.0-36.0) Red Cell Distribution Width 13.6 % (11.8-14.3) Platelet Count 260 10^3/uL (140-450) Mean Platelet Volume 7.5 fL (6.9-10.8) Neutrophils (%) (Auto) % (37.0-80.0) Lymphocytes (%) (Auto) % (10.0-50.0) Monocytes (%) (Auto) % (0.0-12.0) Basophils (%) (Auto) % (0.0-2.0) Neutrophils # (Auto) 10 ^3/uL (1.6-8.6) Lymphocytes # (Auto) 10 ^3/uL (0.4-5.4) Monocytes # (Auto) 10 ^3/uL (0-1.3) Differential Total Cells Counted 100.0 (100) Neutrophils % (Manual) 45 (37.0-80.0) Band Neutrophils % (Manual) 0 Lymphocytes % (Manual) 28 (10.0-50.0) Monocytes % (Manual) 3 (0-12) Eosinophils % (Manual) 24 (0-7) Basophils % (Manual) 0 (0.0-2.0) Metamyelocytes % (manual) 0 Myelocytes % (Manual) 0 Promyelocytes % (Manual) 0 Blast Cells % (Manual) 0 Reactive Lymphocytes 0 Platelet Estimate Adequate Reticulocyte Count (auto) 0.68 % (0.5-1.5) Sodium Level 141 mmol/L (136-145) Potassium Level 4.2 mmol/L (3.5-5.1) Chloride Level 102 mmol/L (98-107) Carbon Dioxide Level 30 mmol/L (20-31) Anion Gap 9 (5-15) Blood Urea Nitrogen 16 mg/dL (9-23) Creatinine 1.02 mg/dL (0.700-1.30) Glomerular Filtration Rate Calc 76 mL/min (>90) BUN/Creatinine Ratio 15.7 (10.0-20.0) Serum Glucose 96 mg/dL (74-106) Calcium Level 9.8 mg/dL (8.7-10.4) Total Bilirubin 0.5 mg/dL (0.2-1.0) Aspartate Amino Transferase (AST) 24 U/L (13-40) Alanine Aminotransferase (ALT) 22 U/L (7-40) Alkaline Phosphatase 69 U/L (46-116) Lactate Dehydrogenase 179 U/L (120-246) Total Protein 7.5 g/dL (5.7-8.2) Albumin 4.5 g/dL (3.2-4.8) Iron Level 51 ug/dL (65-175) Total Iron Binding Capacity 272 ug/dL (250-425) Percent Iron Saturation 18.8 % (20-55) Test 09/25/25 19:43 Eosinophils (%) (Auto) % (0.0-7.0) Large Platelets Few Ovalocytes Few Schistocytes Few Other Laboratory Tests 09/26/25 02:57 Brief Hx & Hospital Course: 75-year-old male who had a prostate cancer surgery 12 days ago at [facility] burden by family for swelling of the left lower extremity venous ultrasound negative for DVT of the left lower extremity urine and no swelling of the left lower extremity clinically. History of BPH multiple bladder cancer surgeries diabetes hypercholesterolemia. The patient's daughter Wilber Moore who is also a primary care Dr at the bedside discussed about the negative findings and patient being discharged home Consults/Reason for consult None Operations or Procedures CT abdomen pelvis without contrast Venous ultrasound left lower extremity Condition at Discharge: Fair Final Diagnosis/Problems List Left lower extremity swelling postop day 12. DVT ruled out: Lovenox 40 mg subQ daily History of Surgery for prostate cancer 12 days ago at [facility] BPH History of bladder cancer with multiple surgeries Diabetes: insulin sliding scale Hypercholesterolemia Moderate Malnutrition Discharge Disposition: Home Discharge Instruct/Medications Diet: Regular Activity: Light activity Follow Up/Referral: Follow up with the primary Dr Medications: none Scheduled Aspirin (Aspir-81), 1 TAB PO DAILY, (Reported) Latanoprost (Latanoprost), 1 DROP EACHEYE QPM, (Reported) Metformin Hydrochloride (Metformin Hcl), 1 TAB PO BID, (Reported) Rosuvastatin Calcium (Crestor), 1 TAB PO DAILY, (Reported) Miscellaneous Medications Rosuvastatin Calcium (Rosuvastatin Calcium), 10 TAB PO, (Reported) 35 (Time taken for discharge summary 35 minutes) Discharge Statement: "Patient was advised to return to the ER or call 911 if any headaches, dizziness, shortness of breath, chest pain, abdominal pain, bleeding, fevers, or worsening of medical condition. Patient was counseled about treatment plan, medications, possible side effects, patientverbalized understanding. All questions were answered to the best of my ability. This discharge took greater then 30 minutes in planning, reviewing documentation, counseling the patient, and discussing with other team members." ASSESSMENT ASSESSMENT Hospital Course Improved Assessment Left lower extremity swelling postop day 12. DVT ruled out: Lovenox 40 mg subQ daily History of Surgery for prostate cancer 12 days ago at [facility] BPH History of bladder cancer with multiple surgeries Diabetes: insulin sliding scale Hypercholesterolemia Moderate Malnutrition Date of Service: Sep 27, 2025 Billing Provider: BRYAN STEEN MD Common Visit Codes: [id number] INP/OBS CARE(HIGH) BRYAN STEEN MD Sep 27, 2025 12:09
[2025-09-27 12:39] VITALS: BP 119/75; PULSE 72; RESP 18; TEMP 98.5; O2SAT 96
[2025-09-27 13:48] VITALS: TEMP 36.9
== END 2025-09-27 14:15 | disposition home or self-care (01) | DRG 436 ==
LOC: ER 18:22 → OVERFLOW 23:10 → WEST WING 09-26 11:27
PROVIDERS: ATTEND Internal Medicine
DX: C78.7 Secondary malignant neoplasm of liver and intrahepatic bile duct (principal); C79.00 Secondary malignant neoplasm of unspecified kidney and renal pelvis; E44.0 Moderate protein-calorie malnutrition; J98.2 Interstitial emphysema; E11.9 Type 2 diabetes mellitus without complications; D64.9 Anemia, unspecified; E78.00 Pure hypercholesterolemia, unspecified; K59.00 Constipation, unspecified; Z68.1 Body mass index [BMI] 19.9 or less, adult; M79.89 Other specified soft tissue disorders; N99.89 Other postprocedural complications and disorders of genitourinary system; N40.0 Benign prostatic hyperplasia without lower urinary tract symptoms; Z85.51 Personal history of malignant neoplasm of bladder; Z90.79 Acquired absence of other genital organ(s); Z85.46 Personal history of malignant neoplasm of prostate; Z87.891 Personal history of nicotine dependence
CPT/HCPCS: 36415; 71045; 72195; 74176; 74181; 80048; 80053; 81001; 82962; 83540; 83550; 83615; 85007; 85027; 85045; 93971; G0378